=== PATIENT | male | born 1995 | race African-American/Black ===

== ENCOUNTER 2019-06-11 23:31 | Emergency (ER) | payer OTHER ==
[2019-06-12] MEDS ORDERED: IBUPROFEN 800 MG TABLET PO ONE (01:25)
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
[2019-06-12 04:49] VITALS: BP 120/68
== END 2019-06-12 04:47 | disposition home or self-care (01) ==
LOC: ER 23:31
DX: R07.81 Pleurodynia (principal); M54.9 Dorsalgia, unspecified; V87.7XXA Person injured in collision between other specified motor vehicles (traffic), initial encounter; F17.200 Nicotine dependence, unspecified, uncomplicated
CPT/HCPCS: 71046